=== PATIENT | female | born 1940 | race Caucasian/White ===

== ENCOUNTER 2017-08-14 14:48 | Observation (INO) | payer MEDICARE, OTHER ==
[~2017-08-14] VITALS: Ht 160 cm; Wt 70.3 kg
[2017-08-14] VITALS (9 sets, daily range): BP systolic 85–109; BP diastolic 47–59
[~2017-08-14 14:48] MED LIST: ALLEGRA-D 12 H1 EACH PO; ASPIR 8181 MG ORAL; ATORVASTATIN CA20 MG ORAL; CIMETIDINE300 MG ORAL; ESTRACE1 MG ORAL; GABAPENTIN600 MG ORAL; HYDREA500 MG PO; LEVOTHYROXINE75 MCG ORAL; PAMELOR25 MG ORAL; POTASSIUM CHLO20 ME3 PO; PROMETRIUM100 MG PO; SKELAXIN800 MG PO; VITAMIN D-32000 UNI2 PO; VITAMIN D32000 UNI2 PO; ZOLPIDEM TARTRAT5 MG ORAL
[2017-08-14] MEDS ORDERED: Sodium Chloride 500ML 500 ML IV ONE (14:52)
[2017-08-14 15:37] LABS: HEMATOCRIT 33.4 % (37.0-47.0); HEMOGLOBIN 10.4 G/DL (12.0-16.0); MEAN CORPUSCULAR VOLUME 117 FL (80-99); PLATELET COUNT 328 K/UL (150-450); RED BLOOD COUNT 2.85 M/UL (4.20-5.40); RED CELL DISTRIBUTION WIDTH 14.7 % (11.6-14.8); WHITE BLOOD COUNT 7.2 K/UL (4.8-10.8)
[2017-08-14 15:38] LABS: EOSINOPHILS % (AUTO) 3.5 % (0.0-3.0); LYMPHOCYTES % (AUTO) 16.9 % (20.0-45.0); MONOCYTES % (AUTO) 12.1 % (1.0-10.0); NEUTROPHILS % (AUTO) 65.9 % (45.0-75.0)
[2017-08-14 15:39] LABS: BASOPHILS % (AUTO) 1.6 % (0.0-2.0)
[2017-08-14 15:48] LABS: ANION GAP 9 mmol/L (5-15); BLOOD UREA NITROGEN 23 mg/dL (7-18); CALCIUM 7.7 MG/DL (8.5-10.1); CARBON DIOXIDE 24 MMOL/L (21-32); CHLORIDE 99 MMOL/L (98-107); POTASSIUM 3.7 MMOL/L (3.5-5.1); SODIUM 132 MMOL/L (136-145)
--- NOTE | 2017-08-14 15:53 | Diagnostic Imaging Report ---
Indication: Chest pain Comparison: 07/23/2015 A single view chest radiograph was obtained. Findings: The lungs are clear. Surgical clips demonstrated within the left lower chest and right axilla. Fusion hardware noted in the lower cervical upper thoracic spine. Bones are osteopenic. The heart is mildly enlarged. IMPRESSION: No acute disease
[2017-08-14 15:55] LABS: ALANINE AMINOTRANSFERASE 17 U/L (12-78); ALBUMIN 3.1 G/DL (3.4-5.0); ALKALINE PHOSPHATASE 94 U/L (46-116); ASPARTATE AMINO TRANSFERASE 25 U/L (15-37); BILIRUBIN,TOTAL 0.4 MG/DL (0.2-1.0); CREATINE KINASE 57 U/L (26-308)
[2017-08-14 16:23] LABS: CKMB 2.4 NG/ML (0.0-3.6)
[2017-08-14 21:25] LABS: APPEARANCE,URINE CLEAR; BILIRUBIN, URINE NEGATIVE (NEGATIVE); COLOR,URINE PALE YELLOW; GLUCOSE, URINE (UA) NEGATIVE (NEGATIVE); KETONES,URINE NEGATIVE (NEGATIVE); LEUKOCYTE ESTERASE ,URINE 2+ (NEGATIVE); NITRITE,URINE NEGATIVE (NEGATIVE); PH,URINE 5 (4.5-8.0); PROTEIN,URINE NEGATIVE (NEGATIVE); UROBILINOGEN,URINE NORMAL MG/DL (0.0-1.0)
[2017-08-14] MEDS ORDERED: Nitroglycerin Subl 0.4mg tab SL PRN (21:45)
[2017-08-14] MEDS ORDERED: Zolpidem 5mg tab ORAL PRN (21:45)
--- NOTE | 2017-08-14 22:50 | Emergency Room Report ---
History of Present Illness General Chief Complaint: Syncope Source: Patient, Medical Record, EMS (AMADO HOWELL.Nery) Present Illness HPI Patient is brought in for reports of lapse of consciousness Patient reports that she was feeling somewhat lightheaded and near syncopal Does not remember the actual event patient reports that she has had multiple neck problems Had previous fusion of her C-spine And had a recent fracture of C1 Was recommended for possible fusion again Patient has had several syncopal episodes recently Denies any vomiting or diarrhea Patient is on pain medication (AMADO HOWELL D.O.) Allergies: Coded Allergies: FISH CONTAINING PRODUCTS (Verified Allergy, Unknown, 07/23/15) PENICILLINS (Verified Allergy, Unknown, 07/23/15) Patient History Past Medical History: see triage record Pertinent Family History: none Reviewed Nursing Documentation: PMH: Agreed, PSxH: Agreed (AMADO HOWELL D.O.) Nursing Documentation-PMH Past Medical History: No History, Except For Hx Cancer: Yes - Bi breast Cancer (AMADO HOWELL D.O.) Review of Systems All Other Systems: negative except mentioned in HPI (AMADO HOWELL.Nery) Physical Exam Vital Signs Date Time Temp Pulse Resp B/P (MAP) Pulse Ox O2 Delivery O2 Flow Rate FiO2 08/14/17 14:44 98.1 77 16 75/46 100 Room Air Sp02 EP Interpretation: reviewed, normal General Appearance: well appearing, no apparent distress Head: normocephalic, atraumatic Eyes: bilateral eye PERRL, bilateral eye EOMI ENT: hearing grossly normal, normal pharynx, TMs + canals normal, uvula midline Neck: full range of motion, supple, no meningismus, no bony tend Respiratory: lungs clear, normal breath sounds, no rhonchi, no respiratory distress, no retraction, no accessory muscle use Cardiovascular #1: normal peripheral pulses, regular rate, rhythm, no edema, no gallop, no JVD, no murmur Gastrointestinal: normal bowel sounds, non tender, soft, no mass, no organomegaly, non-distended, no guarding, no hernia, no pulsatile mass, no rebound Genitourinary: no CVA tenderness Musculoskeletal: normal inspection Neurologic: oriented x3, responsive, geographic analyst III-XII nml as tested, motor strength/ tone normal, sensory intact Psychiatric: mood/affect normal Skin: normal color, no rash, warm/dry, palpation normal Lymphatic: normal inspection, no adenopathy (AMADO HOWELL D.O.) Medical Decision Making Diagnostic Impression: Primary Impression: Syncope Additional Impression: Diverticulitis ER Course Patient is a fairly complex patient with multiple differential to consideration including but not limited to cardiac cardiopulmonary and vascular emergencies Given the patient's acidosis And dehydration In the patient's possible infectious etiology CT imaging was done did not show any obvious acute pathology Patient remained otherwise comfortable Further IV hydration is provided and patient admitted for further inpatient care Labs Test 08/14/17 15:17 08/14/17 21:05 White Blood Count 7.2 K/UL (4.8-10.8) Red Blood Count 2.85 M/UL (4.20-5.40) Hemoglobin 10.4 G/DL (12.0-16.0) Hematocrit 33.4 % (37.0-47.0) Mean Corpuscular Volume 117 FL (80-99) Mean Corpuscular Hemoglobin 36.5 PG (27.0-31.0) Mean Corpuscular Hemoglobin Concent 31.2 G/DL (32.0-36.0) Red Cell Distribution Width 14.7 % (11.6-14.8) Platelet Count 328 K/UL (150-450) Mean Platelet Volume 6.0 FL (6.5-10.1) Neutrophils (%) (Auto) 65.9 % (45.0-75.0) Lymphocytes (%) (Auto) 16.9 % (20.0-45.0) Monocytes (%) (Auto) 12.1 % (1.0-10.0) Eosinophils (%) (Auto) 3.5 % (0.0-3.0) Basophils (%) (Auto) 1.6 % (0.0-2.0) Sodium Level 132 MMOL/L (136-145) Potassium Level 3.7 MMOL/L (3.5-5.1) Chloride Level 99 MMOL/L (98-107) Carbon Dioxide Level 24 MMOL/L (21-32) Anion Gap 9 mmol/L (5-15) Blood Urea Nitrogen 23 mg/dL (7-18) Creatinine 2.0 MG/DL (0.55-1.30) Estimat Glomerular Filtration Rate mL/min (>60) Glucose Level 103 MG/DL (74-106) Calcium Level 7.7 MG/DL (8.5-10.1) Total Bilirubin 0.4 MG/DL (0.2-1.0) Aspartate Amino Transf (AST/SGOT) 25 U/L (15-37) Alanine Aminotransferase (ALT/SGPT) 17 U/L (12-78) Alkaline Phosphatase 94 U/L (46-116) Total Creatine Kinase 57 U/L (26-308) Creatine Kinase MB 2.4 NG/ML (0.0-3.6) Creatine Kinase MB Relative Index 4.2 Troponin I 0.017 ng/mL (0.000-0.056) Pro-B-Type Natriuretic Peptide 552 pg/mL (0-125) Total Protein 6.1 G/DL (6.4-8.2) Albumin 3.1 G/DL (3.4-5.0) Globulin 3.0 g/dL Albumin/Globulin Ratio 1.0 (1.0-2.7) Lipase 67 U/L (73-393) Urine Color Pale yellow Urine Appearance Clear Urine pH 5 (4.5-8.0) Urine Specific Jewett 1.010 (1.005-1.035) Urine Protein Negative (NEGATIVE) Urine Glucose (UA) Negative (NEGATIVE) Urine Ketones Negative (NEGATIVE) Urine Occult Blood Negative (NEGATIVE) Urine Nitrite Negative (NEGATIVE) Urine Bilirubin Negative (NEGATIVE) Urine Urobilinogen Normal MG/DL (0.0-1.0) Urine Leukocyte Esterase 2+ (NEGATIVE) Urine RBC 0-2 /HPF (0 - 2) Urine WBC 2-4 /HPF (0 - 2) Urine Squamous Epithelial Cells Few /LPF (NONE/OCC) Urine Bacteria Few /HPF (NONE) Urine Opiates Screen Negative (NEGATIVE) Urine Barbiturates Screen Positive (NEGATIVE) Phencyclidine (PCP) Screen Negative (NEGATIVE) Urine Amphetamines Screen Negative (NEGATIVE) Urine Benzodiazepines Screen Negative (NEGATIVE) Urine Cocaine Screen Negative (NEGATIVE) Urine Marijuana (THC) Screen Negative (NEGATIVE) (AMADO HOWELL D.O.) ER Course I was contacted by radiology do to have reading discrepancy occurred. radiologist stated the patient has definite evidence of diverticulitis. The findings were discussed with the admitting physician Dr. Christian Bolton (Shilo Horner) Rhythm Strip Diag. Results EP Interpretation: yes Rate: 88 Rhythm: NSR, no PVC's, no ectopy (AMADO HOWELL D.O.) CT/MRI/US Diagnostic Results CT/MRI/US Diagnostic Results : Impression CT abdomen pelvis: No obvious acute disease (AMADO HOWELL D.O.) Last Vital Signs Date Time Temp Pulse Resp B/P (MAP) Pulse Ox O2 Delivery O2 Flow Rate FiO2 08/14/17 20:35 98.0 75 16 102/51 98 Room Air Status: improved (AMADO HOWELL D.O.) Disposition: ADMITTED INPATIENT Condition: Serious Referrals: NOT CHOSEN IPA/,REFERRING (PCP) AMADO HOWELL D.O. Aug 14, 2017 22:50 Shilo Horner Aug 15, 2017 10:27
[2017-08-15] VITALS: BP 97/47
[2017-08-15 04:56] VITALS: BP 116/55
[2017-08-15 08:00] VITALS: BP 132/62
[2017-08-15] MEDS ORDERED: NS w/KCl 20mEq 1,000 ML IV SCH (09:00)
[2017-08-15] MEDS: Aspirin EC 81mg tab ORAL SCH (09:50)
[2017-08-15] MEDS: Nortriptyline 25mg cap ORAL SCH (09:51)
[2017-08-15] MEDS: Heparin 5000 units/ml inj SUBQ SCH ×2 (09:53→20:17)
[2017-08-15] MEDS: Hydroxyurea 500mg cap ORAL SCH ×2 (09:53→18:59)
--- NOTE | 2017-08-15 10:33 | Diagnostic Imaging Report ---
Indication: Abdominal pain Technique: CT of the abdomen and pelvis utilizing automated exposure control intravenous contrast. CT dose: Total DLP 688.07 mGycm; CTDI vol 14.12 mGy Comparison: None Findings: Please note that evaluation of the abdominal and pelvic viscera is limited without the use of contrast. Within these limitations, the following observations are made: Dependent atelectasis noted in the bilateral lower lobes. Heart size within normal limits. There is cholelithiasis. No definite CT evidence to suggest an acute cholecystitis. Liver is otherwise unremarkable. Spleen, adrenal glands and pancreas grossly unremarkable. No urinary tract stone or hydronephrosis seen bilaterally. Bladder is mildly distended but otherwise unremarkable in appearance. Coarse calcifications noted within the uterus, possibly calcified uterine fibroids. Adnexal regions are grossly unremarkable. There is no bowel obstruction. No free intraperitoneal air is seen. There is diverticulosis with mild inflammatory change surrounding portions of a thickened sigmoid colon compatible with early, noncomplicated diverticulitis. No associated abscess formation or perforation. There is underdistention of the descending colon. Status post bilateral inguinal hernia repairs and ventral hernia repair with mesh. There are multilevel degenerative changes of the thoracolumbar spine with scoliosis. Multiple bilateral healed/remote rib fractures are noted. No acute osseous abnormality seen. Abdominal aorta is normal in caliber with moderate to severe atherosclerotic calcification. Impression: Early, uncomplicated sigmoid diverticulitis. No evidence of associated bowel obstruction, perforation or abscess formation. Cholelithiasis. No definite CT evidence to suggest an acute cholecystitis. Abdominal ultrasound can be obtained for more sensitive assessment as clinically indicated. Additional findings as above. This is discrepant from the preliminary report. Findings discussed with the patient's treating nurse Leslie barnes [address] via telephone conversation 10:24 AM 08/15/2017. The CT scanner at [facility] is accredited by the [employer] and the scans are performed using protocols designed to limit radiation exposure to as low as reasonably achievable to attain images of sufficient resolution adequate for diagnostic evaluation.
[2017-08-15 11:09] LABS: HEMATOCRIT 33.7 % (37.0-47.0); HEMOGLOBIN 11.4 G/DL (12.0-16.0); MEAN CORPUSCULAR VOLUME 118 FL (80-99); PLATELET COUNT 321 K/UL (150-450); RED BLOOD COUNT 2.87 M/UL (4.20-5.40); RED CELL DISTRIBUTION WIDTH 15.8 % (11.6-14.8); WHITE BLOOD COUNT 4.8 K/UL (4.8-10.8)
[2017-08-15 12:00] VITALS: BP 150/60
[2017-08-15 12:08] LABS: ANION GAP 9 mmol/L (5-15); BLOOD UREA NITROGEN 10 mg/dL (7-18); CALCIUM 7.4 MG/DL (8.5-10.1); CARBON DIOXIDE 22 MMOL/L (21-32); CHLORIDE 108 MMOL/L (98-107); CHOLESTEROL 161 MG/DL (< 200); CREATININE 0.7 MG/DL (0.55-1.30); HDL CHOLESTEROL 51 MG/DL (40-60); POTASSIUM 3.9 MMOL/L (3.5-5.1); SODIUM 139 MMOL/L (136-145); TRIGLYCERIDES 97 MG/DL (30-150)
[2017-08-15 16:00] VITALS: BP 163/78
--- NOTE | 2017-08-15 16:16 | History and Physical Report ---
DATE OF ADMISSION: 08/14/2017 CHIEF COMPLAINT/REASON FOR HOSPITALIZATION: The patient is a 76-year-old lady admitted with syncope, weakness, elevated BUN and creatinine. HISTORY OF PRESENT ILLNESS: The patient had diarrhea about two days prior to this admission with a slight amount of bright red rectal bleeding, which she attributes to hemorrhoids, this resolved. She apparently was getting out of bed and had an episode of loss of consciousness, hit her head, felt weak, and was brought into the hospital for the above problem. History is significant for cervical spine surgery in the past, chronic pain, multiple medications. There is no history of angina or AR. She has had supraventricular tachycardia in the past. Prior surgeries, in 1979 C1 fracture and several years later C3-C4 surgery and then C5-C7 and she states she has fused T1. She has had a right orbital fracture after a fall and appendectomy incidental within over ovarian cyst and bilateral cataract surgeries. She has been on hydroxyurea apparently for thrombocytosis, her platelet count today is 328. MEDICATIONS: Prior to admission medications are listed on the computer include aspirin, atorvastatin, vitamin D3, cimetidine, estradiol, Cynthia, gabapentin, hydroxyurea, levothyroxine, Skelaxin, nortriptyline, potassium, progesterone, and zolpidem. ALLERGIES: Fish containing products and penicillin. HABITS: She smoked as a young and adult, quit. Alcohol, has a young and adult, now just rarely. She has used CBD recently, but not in the last 2 days. REVIEW OF SYSTEMS: HEENT: There is a history of cataract surgery with now good vision. Hearing is good. ENDOCRINE: Hypothyroidism on replacement. PULMONARY: No asthma, TB, or chronic cough. CARDIAC: History of SVT. No angina or AR. GASTROINTESTINAL: Diarrhea as above. No chronic abdominal pain or ulcer disease. GENITOURINARY: No dysuria or hematuria. NEUROLOGIC: No seizures or CVA. She has had syncope in the past. PHYSICAL EXAMINATION: GENERAL: The patient is alert, well-developed lady, in no acute distress. VITAL SIGNS: Temperature 97.9 degrees, pulse 68, respirations 18, and blood pressure 116/95, and O2 saturation 95%. HEENT: Sclerae are nonicteric. Ocular motions intact in all directions. Oral mucosa slightly dry. NECK: No adenopathy or thyroid enlargement. LUNGS: Clear. HEART: Regular rhythm. No murmur. ABDOMEN: Soft without organomegaly or masses. BREASTS: Bilateral implants. No masses. Axilla negative . EXTREMITIES: No edema, cyanosis or clubbing. No swollen joints. NECK: Mild decreased range of motion consistent with prior surgery. NEUROLOGIC: She is alert and oriented with clear speech. Cranial nerves are intact. She moves all extremities equally. The right plantar appears to be upgoing and left is downgoing. Strength is normal in all extremities. LABORATORY AND DIAGNOSTIC DATA: Pertinent lab are significant for a BUN 23, creatinine of 2 and troponin 0.017. BNP 552. White count 7.2 and hemoglobin 10.4. IMPRESSION: Syncope and collapse, this may be due to possibly dehydration, possibly related to diarrhea illness, she could also have cardiac disease and history of supraventricular tachycardia and she has been placed on a monitored bed, less likely neurologic causes are syncope or vasovagal syncope. She is also taking multiple medications, which potentially can cause altered mental status, slip and fall. PLAN: The patient received vigorous hydration. We will repeat her laboratories including troponin. She wishes to go home soon, so we will see the results of these and make further assessment and treatment plans as her condition warrants. Thank you so much. Christian Bolton M.D. DR: PAULO JOB#: [id number] CC:
[2017-08-15 18:08] LABS: ANION GAP 10 mmol/L (5-15); BLOOD UREA NITROGEN 9 mg/dL (7-18); CALCIUM 7.6 MG/DL (8.5-10.1); CARBON DIOXIDE 23 MMOL/L (21-32); CHLORIDE 106 MMOL/L (98-107); CREATININE 0.6 MG/DL (0.55-1.30); POTASSIUM 4.5 MMOL/L (3.5-5.1); SODIUM 139 MMOL/L (136-145)
[2017-08-15] MEDS: Norco 5mg/325mg tab ORAL PRN (20:16)
[2017-08-15 20:23] VITALS: BP 160/80
[2017-08-16] VITALS: BP 147/63
[2017-08-16 02:26] VITALS: BP 147/63
[2017-08-16 04:41] VITALS: BP 133/79
[2017-08-16 08:00] VITALS: BP 152/78
--- NOTE | 2017-08-16 08:44 | Diagnostic Imaging Report ---
Indication: Fall Technique: Continuous helical CT scanning of the head was performed utilizing automated exposure control without intravenous contrast material. Axial and coronal reconstructions were obtained. Comparison: None CT dose: Total DLP 1376.09 mGycm; CTDI vol 70.38 mGy Findings: There is no acute intracranial hemorrhage, mass effect or cortical edema. The ventricles, cisterns and sulci are prominent consistent with atrophy. There is asymmetric prominence of the left postcentral sulcus, possibly normal variant versus sequela of remote injury/ischemia. Periventricular hypoattenuation is seen, a nonspecific finding. The posterior fossa and fourth ventricle are unremarkable. Visualized mastoid air cells are clear. Mild thickening in some ethmoid sinuses. No focal lesions of the bony calvarium or soft tissues of the scalp are seen. Impression: No evidence of acute intracranial hemorrhage, mass effect or cortical edema. MRI may be obtained for more sensitive evaluation as clinically indicated. Atrophy and nonspecific periventricular hypoattenuation suggestive of chronic ischemic microvascular changes. Asymmetric prominence of the left postcentral sulcus, possibly normal variant versus sequela of remote injury/ischemia. Correlate clinically. The CT scanner at [facility] is accredited by the [employer] and the scans are performed using protocols designed to limit radiation exposure to as low as reasonably achievable to attain images of sufficient resolution adequate for diagnostic evaluation.
[2017-08-16] MEDS: Aspirin EC 81mg tab ORAL SCH (09:31)
[2017-08-16] MEDS: Nortriptyline 25mg cap ORAL SCH (09:34)
[2017-08-16] MEDS: Hydroxyurea 500mg cap ORAL SCH (09:34)
[2017-08-16] MEDS: Heparin 5000 units/ml inj SUBQ SCH (09:35)
[2017-08-16 12:00] VITALS: BP 165/80
[2017-08-16] MEDS ORDERED: NS w/KCl 20mEq 1,000 ML IV SCH (12:00)
[2017-08-16] MEDS: Norco 5mg/325mg tab ORAL PRN (13:10)
--- NOTE | 2017-08-17 04:45 | Discharge Summary ---
DATE OF ADMISSION: 08/14/2017 DATE OF DISCHARGE: 08/16/2017 PERTINENT HISTORY: The patient is a 76-year-old lady, who had had an episode of syncope and weakness. Prior to this, she had had some diarrhea. There is history of several spine surgeries, chronic pain, on multiple medications, prior supraventricular tachycardia, and taking hydroxyurea for apparently essential thrombocytosis. PERTINENT PHYSICAL FINDINGS: GENERAL: She is alert and oriented. HEAD, EYES, EARS, NOSE, THROAT: Oral mucosa is slightly dry. LUNGS: Clear. HEART: Regular rhythm. ABDOMEN: Soft without organomegaly or tenderness. EXTREMITIES: No edema. NEUROLOGIC: No focal findings other than the right plantar appears to be upgoing and the left downgoing. COURSE IN THE HOSPITAL: The patient had abnormal laboratories with anemia, which apparently was chronic and elevated BUN and creatinine on admission at 23 and 2.0, which improved with hydration to 9 and 0.6. She was able to tolerate diet with no more diarrhea, nausea, or vomiting. It was perhaps early diverticulitis on CT scanning, but she had no pain and no diarrhea and this did not require treatment. CT of brain was done in view of mild head trauma with syncope and this showed no acute infarct or bleed. On day of discharge, her vital signs were stable, lungs were clear, heart with regular rhythm, abdomen soft without organomegaly or masses, extremities had no edema, she was alert and oriented. She was discharged home in stable condition. FINAL DIAGNOSES: 1. Syncope. 2. Dehydration and acute kidney injury secondary to dehydration. 3. Diverticular disease of the colon. 4. History of prior cervical spine surgery. 5. Chronic pain syndrome. 6. Essential thrombocytosis. DISCHARGE DISPOSITION: Home on regular diet as tolerated and medications same as prior to admission. FOLLOWUP: Follow up with her prior physician when she returns home. Christian Bolton M.D. DR: GIOVANNI JOB#: [id number] CC:
--- NOTE | 2017-08-19 19:32 | Cardiology Report ---
APPROVED REPORT EKG Measurement Heart [id number] Normal sinus rhythm Normal ECG
--- NOTE | 2017-08-19 19:34 | Cardiology Report ---
APPROVED REPORT EKG Measurement Heart [id number] Normal sinus rhythm Increased R/S ratio in V1, consider early transition or posterior infarct Abnormal ECG
== END 2017-08-16 15:30 | disposition home or self-care (01) ==
LOC: EDBD 14:48 → EMR 15:20 → INTOOBSV 16:10 → 2E 16:10 → EDBEDREQ 23:45 → UNDODISIN 08-15 09:07
DX: E86.0 Dehydration (principal); N17.9 Acute kidney failure, unspecified; K57.32 Diverticulitis of large intestine without perforation or abscess without bleeding; G89.4 Chronic pain syndrome; D47.3 Essential (hemorrhagic) thrombocythemia; Z98.1 Arthrodesis status; R55 Syncope and collapse
CPT/HCPCS: 36415 ×2; 70450; 71010; 74176; 80048; 80053; 80061; 80307; 81003; 82550; 82553; 83690; 83880; 84443; 84484 ×2; 85007; 85025 ×2; 93005; 99285; J1644 ×2; J7040